=== PATIENT | male | born 1985 | race Caucasian/White ===

== ENCOUNTER 2022-12-20 15:02 | Outpatient (AMB) | payer BC, SELFPAY ==
--- NOTE | 2022-12-20 15:11 | MHC.PC.OV ---
Vital Signs 12/20/22 15:12 Height 5 ft 10 in Weight 168 lb BMI 24.1 BP 126/80 Blood Pressure Location Lt brachial Position Sitting Intake Visit Reasons: PE Intake Note: Patient here for a physical exam Call Center Dispatcher Required: No Accompanied by: Self / Same As Patient Allergies No Known Allergies Allergy (Verified 12/20/22 15:24) Medication List - Last Reconciled 12/20/22 by Agnieszka Dubon MD dextroamphetamine-amphetamine 30 mg ER (Adderall XR) 30 mg PO DAILY hydrocortisone 2.5% 1 appl topical BID PRN Tobacco use date assessed: 05/27/22 Dental Screening Dental Screen Date: 12/20/22 Did you have a dental visit in the last 12 months?: No Did you have a dental problem in the last 6 months where you did not have access to dental care?: No Was dental information given to patient?: Yes HPI HPI Comments History of Present Illness Details This is 37-year-old male that comes for his physical exam. No chest pain or shortness of breath. No family history of colon cancer. On Adderall for his ADHD and he is aware this can cause addiction and high blood pressure and stroke. [facility] Medical History ADHD Depression Surgical History History of ear surgery History of tooth extraction History of wisdom tooth extraction Family History Father Diabetes Mother Hypertension Maternal Grandfather Stroke Paternal Aunt Cancer Sister In good health Social History (Updated 12/20/22 @ 15:27 by Agnieszka Dubon MD) Housing: House Alcohol intake: current Alcohol intake frequency: a few times a week Alcohol type: beer Patient Tobacco Use Status: Former Tobacco user Quit Date: 2011 e-Cigarette/Vaping Use: Never Used Second Hand Smoke Exposure: No service: No Current occupational status: employed Current occupation: Teacher Cognitive needs: No Hearing needs: No Vision needs: Yes (Glasses) Questionnaire Thrive Questionnaire Date Thrive assessed: 05/27/22 STEPHANY-7 AMB Questionnaire STEPHANY-7 Date STEPHANY - 7 assessed: 05/27/22 Source: Developed by Drs. Christ Burgos, Amber Lockett, Manuel Quispe and colleagues, with an educational miguel from [employer]. Review of Systems Const All systems reviewed & are unremarkable except as noted in HPI and below Eyes Reports no additional complaints, Denies change in vision and Denies other visual disturbances Card Denies chest pain at rest, Denies chest pain with activity, Denies edema, Denies irregular heart rhythm, Denies claudication, Denies dyspnea, Denies dyspnea on exertion, Denies orthopnea, Denies paroxysmal nocturnal dyspnea and Denies slow heart rate Resp Denies cough, Denies dyspnea and Denies dyspnea on exertion GI Denies abdominal pain, Denies change in bowel habits, Denies excessive flatus, Denies nausea and Denies vomiting Denies urinary hesitancy, Denies urinary incontinence and Denies urinary urgency Musc Denies abnormal gait, Denies atrophy, Denies deformity and Denies limited range of motion Skin/Breast Denies bleeding lesions, Denies changing lesions and Denies rash Neuro Denies abnormal gait and Denies lack of coordination Physical exam (Primary Care) Vital Signs: Last Vital Signs BP 126/80 12/20/22 15:12 BMI result Body Mass Index 24.1 Tobacco/Smoking Status: Tobacco use Status Tobacco use date assessed 05/27/22 12/20/22 15:13 Patient Tobacco Use Status Former Tobacco user 12/20/22 15:27 e-Cigarette/Vaping Use Never Used 12/20/22 15:27 Thrive Assessment: Date of Thrive Assessment Date Thrive assessed 05/27/22 12/20/22 15:13 Const Orientation/consciousness: patient oriented x3 [facility] Head: Yes normal to inspection, Yes normocephalic and Yes atraumatic Ears: external ears normal Eyes General: appearance normal, both eyes and all related structures Eyelids: Yes eyelids normal Conjunctivae: conjunctivae normal Neck Neck: Yes normal visual inspection and Yes supple Resp Effort & Inspection: normal respiratory effort Auscultation: clear to auscultation bilaterally Cardio Jugular venous distension: no JVD Rate: regular rate Rhythm: regular rhythm Heart sounds: S1 normal heart sound present and S2 normal heart sound present GI Inspection: Yes normal to inspection Palpation (GI): Soft to palpation and nontender Auscultation: normal bowel sounds Skin General skin exam: no rashes or lesions noted Neuro General: patient oriented x3 and no focal motor deficits Extrem General: Yes full ROM Psych Appearance: grossly normal Assessment and Plan Assessment & Plan (1) Physical exam: Code(s): Z00.00 - Encounter for general adult medical examination without abnormal findings Plan: Repeat in a year Coding Level of Care Code Est Pt Prev Care 18-39y(21459) Diagnoses Physical exam Z00.00 Time Spent (min) 31
[2022-12-20 15:12] VITALS: BP 126/80; BMI 24.1
== END 2022-12-20 15:36 | disposition home or self-care (01) ==
PROVIDERS: PCP Internal Medicine; Visit Provider Internal Medicine
DX: Z00.00 Encounter for general adult medical examination without abnormal findings (principal)
CPT/HCPCS: 99395

== ENCOUNTER 2024-02-14 12:26 | Outpatient (AMB) | payer BC, SELFPAY ==
--- NOTE | 2024-02-14 12:31 | A.OFFPC_ITS ---
Vital Signs 02/14/24 12:32 Height 5 ft 10 in Weight 173 lb BMI 24.8 BP 118/64 Blood Pressure Location Lt brachial Position Sitting Pulse 76 Pulse Source Pulse Oximeter Pulse Oximetry (%) 98 Oxygen Delivery Method Room Air Intake Visit Reasons: annual exam Art Conservator Required: No Accompanied by: Self / Same As Patient Allergies No Known Allergies Allergy (Verified 02/14/24 12:48) Medication List - Last Reconciled 02/14/24 by Agnieszka Dubon MD dextroamphetamine-amphetamine 30 mg ER (Adderall XR) 30 mg PO DAILY 30 days Tobacco use date assessed: 02/14/24 Dental Screening Dental Screen Date: 02/14/24 Did you have a dental visit in the last 12 months?: Yes Did you have a dental problem in the last 6 months where you did not have access to dental care?: No Was dental information given to patient?: Patient has dentist HPI HPI Comments History of Present Illness Details This is a 38-year-old male that comes for his physical exam. Has mild major depression and anxiety follow by counseling for the last 3 years. No acute complaints. No family history of colon cancer. [facility] Medical History ADHD Depression Surgical History History of ear surgery History of tooth extraction History of wisdom tooth extraction Family History Father Diabetes Mother Hypertension Maternal Grandfather Stroke Paternal Aunt Cancer Sister In good health Social History Housing: House Alcohol intake: current Alcohol intake frequency: a few times a week Alcohol type: beer Patient Tobacco Use Status: Former Tobacco user e-Cigarette/Vaping Use: Never Used Second Hand Smoke Exposure: No service: No Current occupational status: employed Current occupation: Teacher Cognitive needs: No Hearing needs: No Vision needs: Yes (Glasses) Questionnaire PHQ-9 Over the last 2 weeks, how often have you been bothered by any of the following problems? 1. Little interest or pleasure in doing things: not at all 2. Feeling down, depressed, or hopeless: more than half the days 3. Trouble falling or staying asleep, or sleeping too much: more than half the days 4. Feeling tired or having little energy: several days 5. Poor appetite or overeating: not at all 6. Feeling bad about yourself - or that you are a failure or have let yourself or your family down: several days 7. Trouble concentrating on things, such as reading the newspaper or watching television: several days 8. Moving or speaking so slowly that other people could have noticed. Or the opposite - being so fidgety or restless that you have been moving around a lot more than usual: not at all 9. Thoughts that you would be better off or of hurting yourself in some way: not at all Total score: 7 Depression Screening Interpretation: Positive Depression Screening Follow-up: Existing condition, Community Mental Health Worker F/U and Follow-up Visit Requested Depression Screening Done: Yes 65775 - PHQ-9 Billing: Yes Source: Developed by Drs. Christ Burgos, Amber Lockett, Manuel Quispe and colleagues, with an educational miguel from [employer] Thrive Questionnaire Date Thrive assessed: 02/14/24 I am a: Patient What is your living situation today?: I have a steady place to live Within the past 12 months, did the food you bought not last and you didn't have the money to get more?: I choose not to answer this question Within the past 12 months, did you worry whether your food would run out before you got money to buy more?: I choose not to answer this question Do you have trouble paying for medicines?: I choose not to answer this question Do you have trouble getting transportation to medical appointments?: I choose not to answer this question Do you have trouble paying your heating and electricity bill?: I choose not to answer this question Do you have trouble taking care of your child, family member or friend?: I cho ose not to answer this question Do you have trouble with day-to-day activities such as bathing, preparing meals, shopping, managing finances, etc.?: I choose not to answer this question Are you currently unemployed and looking for a job?: I choose not to answer this question Are you interested in more education?: I choose not to answer this question Please select the resources that you would like help with: None Currently or been in a relationship where the following occur: I choose not to answer THRIVE Score: 0 AUDIT C Alcohol Use Questionnaire (AUDIT-C) 1. How often do you have a drink containing alcohol?: 2-3 times a week 2. How many drinks containing alcohol do you have on a typical day when you are drinking?: 1 or 2 3. How often do you have six or more drinks on one occasion?: Never Total Score: 3 STEPHANY-7 AMB Questionnaire STEPHAYN-7 Date STEPHANY - 7 assessed: 02/14/24 Feeling nervous, anxious, or on edge: 1 = Several days Not being able to stop or control worryin = Several days Worrying too much about different things: 1 = Several days Trouble relaxin = Several days Being so restless that it is hard to sit still: 0 = Not at all Becoming easily annoyed or irritable: 0 = Not at all Feeling afraid as if something awful might happen: 1 = Several days Total STEPHANY-7 score (0-4 normal; 5-9 mild; 10-14 moderate; 15-21 severe): 5 Source: Developed by Drs. Christ Burgos, Amber Lockett, Manuel Quispe and colleagues, with an educational miguel from [employer] STEPHANY-7 Assessment Billing STEPHANY-7 Assessment Tool: STEPHANY-7 Assessment 56752 Review of Systems Const All systems reviewed & are unremarkable except as noted in HPI and below Card Denies chest pain at rest, Denies chest pain with activity, Denies edema, Denies irregular heart rhythm, Denies claudication, Denies dyspnea, Denies dyspnea on exertion, Denies orthopnea, Denies paroxysmal nocturnal dyspnea and Denies slow heart rate Resp Denies cough, Denies dyspnea and Denies dyspnea on exertion GI Denies abdominal pain, Denies change in bowel habits, Denies excessive flatus, Denies nausea and Denies vomiting Denies urinary hesitancy, Denies urinary incontinence and Denies urinary urgency Musc Denies abnormal gait, Denies atrophy, Denies deformity and Denies limited range of motion Skin/Breast Denies bleeding lesions, Denies changing lesions and Denies rash Neuro Denies abnormal gait and Denies lack of coordination Physical exam (Primary Care) Vital Signs: Last Vital Signs Pulse 76 02/14/24 12:32 BP 118/64 02/14/24 12:32 Pulse Ox 98 02/14/24 12:32 Oxygen Delivery Method Room Air 02/14/24 12:32 BMI result Body Mass Index 24.8 Tobacco/Smoking Status: Tobacco use Status Tobacco use date assessed 02/14/24 02/14/24 12:39 Patient Tobacco Use Status Former Tobacco user 02/14/24 12:39 e-Cigarette/Vaping Use Never Used 02/14/24 12:39 PHQ-9: PHQ-9 Score PHQ-9: Total score 7 02/14/24 13:06 Depression Screening Interpretation: Positive Depression Screening Follow-up: Existing condition, Community Mental Health Worker F/U and Follow-up Visit Requested Thrive Assessment: Date of Thrive Assessment Date Thrive assessed 02/14/24 02/14/24 12:39 Currently or been in a relationship where the following occur: I choose not to answer HENMT Head: Yes normal to inspection, Yes normocephalic and Yes atraumatic Ears: external ears normal Eyes General: appearance normal, both eyes and all related structures Eyelids: Yes eyelids normal Conjunctivae: conjunctivae normal Neck Neck: Yes normal visual inspection and Yes supple Resp Effort & Inspection: normal respiratory effort Auscultation: clear to auscultation bilaterally Cardio Jugular venous distension: no JVD Rate: regular rate Rhythm: regular rhythm Heart sounds: S1 normal heart sound present and S2 normal heart sound present GI Inspection: Yes normal to inspection Palpation (GI): Soft to palpation and nontender Auscultation: normal bowel sounds Skin General skin exam: no rashes or lesions noted Neuro General: no focal motor deficits Extrem General: Yes full ROM Psych Appearance: grossly normal Coding Level of Care Code Est Pt Prev Care 18-39y(91173) Diagnoses Physical exam Z00.00 Mild recurrent major depression F33.0 Additional Codes STEPHANY-7 Assessment Billing - STEPHANY-7 Assessment Tool: STEPHANY-7 Assessment [id number] ([id number]) Time Spent (min) 30 Assessment & Plan Assessment & Plan (1) Physical exam: Code(s): Z00.00 - Encounter for general adult medical examination without abnormal findings Category: Medical Plan: Repeat in a year. (2) Mild recurrent major depression: Code(s): F33.0 - Major depressive disorder, recurrent, mild Category: Medical Plan: Continue counseling. Orders: Orders Comprehensive [place]. Panel Fast Today Z00.00 - Encounter for general adult medic al examination without abnormal findings Lipid Panel Today Z00.00 - Encounter for general adult medical examination without abnormal findings Medications: Refilled dextroamphetamine-amphetamine 30 mg ER (Adderall XR) 30 mg PO DAILY 30 caps 0RF 30 days
[2024-02-14 12:32] VITALS: BP 118/64; PULSE 76; O2SAT 98; BMI 24.8
== END 2024-02-14 13:03 | disposition home or self-care (01) ==
PROVIDERS: PCP Internal Medicine; Visit Provider Internal Medicine
DX: Z00.00 Encounter for general adult medical examination without abnormal findings (principal); F33.0 Major depressive disorder, recurrent, mild

== ENCOUNTER → 2024-02-14 12:26 | Outpatient (BNVA) | payer BC, SELFPAY | PROVIDERS: PCP Internal Medicine; Visit Provider Internal Medicine | DX: Z00.00 Encounter for general adult medical examination without abnormal findings (principal); F33.0 Major depressive disorder, recurrent, mild | CPT/HCPCS: 96127 ==

== ENCOUNTER 2025-02-18 14:37 | Outpatient (REF) | payer BC, SELFPAY ==
[2025-02-18 17:16] LABS: Alanine Aminotransferase 20 U/L (0-40); Albumin Level 4.9 g/dL (3.5-5.0); Alkaline Phosphatase 72 U/L (39-117); Anion Gap 11 (12-20); Aspartate Amino Transferase 52 U/L (5-37); Blood Urea Nitrogen 14 mg/dL (9-16); Calcium 9.3 mg/dL (8.4-10.2); Carbon Dioxide 29 mmol/L (22-29); Chloride 103 mmol/L (96-108); Cholesterol 146 mg/dL (<200); Estimated Glomerular Filt Rate > 60; HDL Cholesterol 46 mg/dL (>40); Potassium 3.6 mmol/L (3.3-5.1); Sodium 139 mmol/L (135-145); Total Protein 7.7 g/dL (6.5-8.0); Triglycerides 182 mg/dL (<150)
[2025-02-18 18:12] LABS: CT PCR Urine NOT DETECTED (Not Detect.); NG PCR Urine NOT DETECTED (Not Detect.)
[2025-02-19 08:23] LABS: Syphilis Screen Nonreactive (Nonreactive)
[2025-02-19 13:22] LABS: HIV Num 1 0.06 S/CO (0.00-0.99)
[2025-02-19 22:38] LABS: Trichomonas vag. RNA Ur Male NOT DETECTED (NOT DETECTED)
== END 2025-02-18 14:38 | disposition home or self-care (01) ==
LOC: HO.LAB 14:37
PROVIDERS: PCP Internal Medicine; Visit Provider Internal Medicine
DX: Z00.00 Encounter for general adult medical examination without abnormal findings (principal); B07.9 Viral wart, unspecified; L98.9 Disorder of the skin and subcutaneous tissue, unspecified; Z23 Encounter for immunization; Z87.891 Personal history of nicotine dependence; Z20.2 Contact with and (suspected) exposure to infections with a predominantly sexual mode of transmission
CPT/HCPCS: 80053; 80061; 86695; 86696; 86780; 87389; 87491; 87591; 87661; 90471; 90715

== ENCOUNTER 2025-02-18 14:37 | Outpatient (AMB) | payer BC, SELFPAY ==
[2025-02-18 14:59] VITALS: BP 122/52; PULSE 97; RESP 18; TEMP 34.3; O2SAT 95; BMI 23.9
--- NOTE | 2025-02-18 14:59 | MHC.PC.OV ---
Vital Signs 02/18/25 14:59 Height 5 ft 10 in Weight 166 lb 6 oz BMI 23.9 BP 122/52 L Blood Pressure Location Lt brachial Position Sitting Respiration 18 Pulse 97 Pulse Source Pulse Oximeter Temp 93.7 F L Temp Source Temporal Artery Scan Pulse Oximetry (%) 95 Oxygen Delivery Method Room Air Intake Visit Reasons: physical exam Behavioral Health Director Required: No Accompanied by: Self / Same As Patient Allergies No Known Allergies Allergy (Verified 02/18/25 15:18) Medication List - Last Reconciled 02/18/25 by Agnieszka Dubon MD Adderall XR 30 mg (dextroamphetamine-amphetamine) 30 mg PO DAILY 30 days NS Tobacco use date assessed: 02/18/25 Dental Screening Dental Screen Date: 02/18/25 Did you have a dental visit in the last 12 months?: Yes Did you have a dental problem in the last 6 months where you did not have access to dental care?: No Was dental information given to patient?: Patient has dentist HPI HPI Comments History of Present Illness Details The patient is a 39-year-old male presenting with a routine physical examination and concerns about vaccinations and potential herpes exposure. The patient has not received a tetanus vaccination since 1999, making it overdue by over 20 years. He expressed willingness to receive the tetanus vaccine during this visit. The patient has not received the influenza vaccine and expressed interest in receiving it, although he was concerned about potential side effects. He decided to defer the influenza vaccine due to previous experiences of feeling tired after receiving the COVID-19 and flu vaccines simultaneously. The patient expressed concern about potential herpes exposure after being informed by a partner who had a history of herpes but had not had an outbreak for over 10 years. He reported no symptoms or lesions suggestive of herpes. The patient reported a wart on his toe that occasionally causes pain. He was advised to see a assisted living associate for potential removal of the wart. The patient has a history of low blood pressure, which is considered beneficial given his medication, Adderall 30 mg extended release, which can increase blood pressure. He has no known allergies to medications and has undergone ear surgery, tooth extraction, and a recent root canal. Family history includes a father with diabetes and a mother with hypertension. A paternal aunt had cancer, but the type is unknown. The patient stopped smoking some time ago and consumes beer a few times a week. He sees a therapist weekly for relationship issues and denies significant depression or anxiety. [facility] Medical History (Updated 02/18/25 @ 20:51 by Agnieszka Dubon MD) Mild recurrent major depression ADHD Depression Surgical History History of ear surgery History of tooth extraction History of wisdom tooth extraction Family History Father Diabetes Mother Hypertension Maternal Grandfather Stroke Paternal Aunt Cancer Sister In good health Social History Housing: House Alcohol intake: current Alcohol intake frequency: a few times a week Alcohol type: beer Patient Tobacco Use Status: Former Tobacco user e-Cigarette/Vaping Use: Never Used Second Hand Smoke Exposure: No service: No Current occupational status: employed Current occupation: Teacher Cognitive needs: No Hearing needs: No Vision needs: Yes (Glasses) Questionnaire Thrive Questionnaire Date Thrive assessed: 02/14/24 I am a: Patient What is your living situation today?: I have a steady place to live Within the past 12 months, did the food you bought not last and you didn't have the money to get more?: I choose not to answer this question Within the past 12 months, did you worry whether your food would run out before you got money to buy more?: I choose not to answer this question Do you have trouble paying for medicines?: I choose not to answer this question Do you have trouble getting transportation to medical appointments?: I choose not to answer this question Do you have trouble paying your heating and electricity bill?: I choose not to answer this question Do you have trouble taking care of your child, family member or friend?: I choose not to answer this question Do you have trouble with day-to-day activities such as bathing, preparing meals, shopping, managing finances, etc.?: I choose not to answer this question Are you currently unemployed and looking for a job?: I choose not to answer this question Are you interested in more education?: I choose not to answer this question Please select the resources that you would like help with: None Currently or been in a relationship where the following occur: I choose not to answer THRIVE Score: 0 STEPHANY-7 AMB Questionnaire STEPHANY-7 Date STEPHANY - 7 assessed: 02/14/24 Source: Developed by Drs. Christ Burgos, Amber Lockett, Manuel Quispe and colleagues, with an educational miguel from [employer]. Review of Systems Const All systems reviewed & are unremarkable except as noted in HPI and below Card Denies chest pain at rest, Denies chest pain with activity, Denies edema, Denies irregular heart rhythm, Denies claudication, Denies dyspnea, Denies dyspnea on exertion, Denies orthopnea, Denies paroxysmal nocturnal dyspnea and Denies slow heart rate Resp Denies cough, Denies dyspnea and Denies dyspnea on exertion GI Denies abdominal pain, Denies change in bowel habits, Denies excessive flatus, Denies nausea and Denies vomiting Physical exam (Primary Care) Vital Signs: Last Vital Signs Temp 93.7 F L 02/18/25 14:59 Pulse 97 02/18/25 14:59 Resp 18 02/18/25 14:59 BP 122/52 L 02/18/25 14:59 Pulse Ox 95 02/18/25 14:59 Oxygen Delivery Method Room Air 02/18/25 14:59 BMI result Body Mass Index 23.9 Tobacco/Smoking Status: Tobacco use Status Tobacco use date assessed 02/18/25 02/18/25 15:05 Patient Tobacco Use Status Former Tobacco user 02/18/25 15:05 e-Cigarette/Vaping Use Never Used 02/18/25 15:05 Thrive Assessment: Date of Thrive Assessment Date Thrive assessed 02/14/24 02/18/25 15:05 Currently or been in a relationship where the following occur: I choose not to answer [facility] Head: Yes normal to inspection, Yes normocephalic and Yes atraumatic Ears: external ears normal Mouth: lip normal Eyes General: appearance normal, both eyes and all related structures Eyelids: Yes eyelids normal Conjunctivae: conjunctivae normal Neck Neck: Yes normal visual inspection and Yes supple Resp Effort & Inspection: normal respiratory effort Auscultation: clear to auscultation bilaterally Cardio Jugular venous distension: no JVD Rate: regular rate Rhythm: regular rhythm Heart sounds: S1 normal heart sound present and S2 normal heart sound present GI Inspection: Yes normal to inspection Palpation (GI): Soft to palpation and nontender Auscultation: normal bowel sounds Skin General skin exam: no rashes or lesions noted Neuro General: no focal motor deficits Extrem General: Yes full ROM Psych Appearance: grossly normal Immunizations Boostrix Tdap 2.5 Lf unit-8 mcg-5 Lf/0.5 mL intramuscular syringe Performing Provider: Agnieszka Dubon MD [facility] Administered by: Anahy Otero RN on 02/18/25 15:49 Dose Route Admin Location Dispensed Lot Number Expiration Date [facility] [place] 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 mL IM Left Deltoid 0.5 mL [id number] 02/22/27 69184-178-82 [employer] Total Dispensed Waste 0.5 mL 0 % VIS Given Date VIS Provided VIS Publication Date 02/18/25 Single Vaccine 20 Eligibility Eligibility Date Funding Source Not [facility] Eligible 02/18/25 Private Coding Level of Care Code Est Pt Level 3 (62236) Est Pt Prev Care 40-64y(78671) Diagnoses Physical exam Z00.00 Skin lesion L98.9 Screen for STD (sexually transmitted disease) Z11.3 Time Spent (min) 31 Assessment & Plan Assessment & Plan (1) Physical exam: Code(s): Z00.00 - Encounter for general adult medical examination without abnormal findings Category: Medical (2) Skin lesion: Code(s): L98.9 - Disorder of the skin and subcutaneous tissue, unspecified Category: Medical (3) Screen for STD (sexually transmitted disease): Code(s): Z11.3 - Encounter for screening for infections with a predominantly sexual mode of transmission Category: Medical Plan Plan Patient was informed and verbally consented to the use of an ambient scribe for clinic note documentation during this visit. 1. Encounter for general adult medical examination without abnormal findings Z00.00 The patient is overdue for a tetanus vaccination, having last received it in 1999. He agreed to receive the Tdap vaccine during this visit to update his immunization status. The patient expressed interest in receiving the influenza vaccine but decided to defer it due to concerns about potential side effects, particularly after experiencing fatigue following previous vaccinations. 2. Encounter for screening for infections with a predominantly sexual mode of transmission Z11.3 The patient expressed concern about potential herpes exposure after a partner disclosed a history of herpes. He reported no symptoms or lesions, and a blood test for herpes was discussed, although it may not provide definitive results. STI screening, including HIV testing, was planned to address his concerns. 3. Viral wart, unspecified B07.9 The patient reported a wart on his toe that occasionally causes pain. Referral to dermatology was suggested for evaluation and potential removal of the wart. Orders: Orders CT NG by PCR Urine Today Z11.3 - Encounter for screening for infections with a predominantly sexual mode of transmission Herpes Simplex Virus Ab IgG Today Z11.3 - Encounter for screening for infections with a predominantly sexual mode of transmission Trichomonas vag. RNA Ur Male Today Z11.3 - Encounter for screening for infections with a predominantly sexual mode of transmission Lipid Panel Today Z00.00 - Encounter for general adult medical examination without abnormal findings Comprehensive [place]. Panel Fast Today Z00.00 - Encounter for general adult medical examination without abnormal findings HIV Ab/Ag Today Z11.3 - Encounter for screening for infections with a predominantly sexual mode of transmission, Z11.4 - Encounter for screening for human immunodeficiency virus [HIV] Syphilis Screen Today Z11.3 - Encounter for screening for infections with a predominantly sexual mode of transmission TDaP Immunization Today Z23 - Encounter for immunization Referrals Dermatology Referral L98.9 - Disorder of the skin and subcutaneous tissue, unspecified
--- OUTSIDE RECORDS SUMMARY | 2025-02-18 18:25 | XMS_ITS | Clinical Summary ---
Author Organization [facility] Address [address] [place] [id number] Phone Care Team Providers Care Recreational Resort Manager Name Role Phone Agnieszka Hi MD Primary Care Provid er Allergies No known active allergies Medications No known medications Social History Tobacco Use Types Packs/Day Years Used Date Smoking Tobacco: Former Smokeless Tobacco: Former Alcohol Use Standard Drinks/Week Comments Yes 0 (1 standard drink = 0.6 oz pur e alcohol) Sex and Gender Information Value Date Recorded Sex Assigned at Not on file Legal Sex Male 9:14 PM EDT Gender Identity Not on file Sexual Orientation Not on file Last Filed Vital Signs Vital Sign Reading Time Taken Comments Blood Pressure 131/90 05/27/2017 1:03 PM EST Pulse 107 05/27/2017 1:03 PM EST Temperature 36.7 C (98 F) 05/27/2017 1:03 PM EST Respiratory Rate - - Oxygen Saturation 99% 05/27/2017 1:03 PM EST Inhaled Oxygen Concentration - - Weight 77.1 kg (170 lb) 05/27/2017 1:03 PM EST Height 180.3 cm (5' 11 ) 05/27/2017 1:03 PM EST Body Mass Index 23.71 05/27/2017 1:03 PM EST Plan of Treatment Not on file Medical Devices Not on file [facility] Subscriber Plan / Payer (Ef fective 2015-) Name:Marcus Guzman Relation to Subscriber:Self Name:MARCUS GUZMAN Payer ID:[id number] ([facility] Type:HMO Address: [place] [id number] [place] [id number] Member Subscriber Plan / Payer ( fective 2015-) Name:Marcus Guzman Relation to Subscriber:Self Name:MARCUS GUZMAN Payer ID:[id number] ([facility]) Type:HMO Address: [place] [address] Member Subscriber Plan / Payer ( fective 2015-) Name:Ricky Guzmann Relation to Subscriber:Self Name:MARCUS GUZMAN Payer ID:[id number] ([facility]) Type:HMO Address: [address] [place] [address] HMO POS Member Subscriber Plan / Payer ( fective 2015-) Name:Ricky Guzmann Relation to Subscriber:Self Name:MARCUS GUZMAN Payer ID:[id number] ([facility]) Type:HMO Address: [address] [address] Member Subscriber Plan / Payer (Ef fective 2015-Present) Name:Marcus Guzman Relation to Subscriber:Self Name:MARCUS GUZMAN Payer ID:[id number] ([facility]) Type:HMO Address: [address] [address] Member Subscriber Plan / Payer (Ef fective 2015-Present) Name:Marcus Guzman Relation to Subscriber:Self Name:MARCUS GUZMAN Payer ID:[id number] ([facility]) Type:HMO Address: [address] [place] [address] [place] [address] [place] [address] HMO POS Care Teams Recreational Resort Manager Relationship Specialty Start Date End Date Agnieszka Hi MD [address] [place] [address] PCP - General Internal Medicine 05/27/17 Additional Source Comments The information contained in this document represents components of the legal health record. It is not the complete legal health record.[facility]
== END 2025-02-18 15:47 | disposition home or self-care (01) ==
PROVIDERS: PCP Internal Medicine; Visit Provider Internal Medicine
DX: Z00.00 Encounter for general adult medical examination without abnormal findings (principal); L98.9 Disorder of the skin and subcutaneous tissue, unspecified; Z11.3 Encounter for screening for infections with a predominantly sexual mode of transmission; Z23 Encounter for immunization